=== PATIENT | male | born 1935 | race Two or more races ===

== ENCOUNTER 2016-08-02 07:29 | Emergency (ER) | payer MEDICARE, MEDICAID ==
[2016-08-02 07:47] LABS: ABSOLUTE NEUTROPHIL COUNT 2.3 K/mm3 (1.8-7.7); BASO # 0.1 K/mm3 (0.0-0.2); BASO % 1.3 % (0.2-1.0); EOS # 0.2 (0.0-0.5); EOS % 5.2 % (0.9-2.9); HEMATOCRIT 40.6 % (32.0-52.0); HEMOGLOBIN 12.8 gm/l (14.0-18.0); IMM NEUT% 0.5 % (0-1); LYMPH # 0.6 (1.0-4.8); LYMPH % 15.5 % (15-45); MEAN CELL VOLUME 96.9 fl (80.0-94.0); MEAN CORPUSCULAR HEMOGLOBIN 30.5 pg (27.0-31.0); MEAN CORPUSCULAR HGB CONC 31.5 g/dl (33.0-37.0); MEAN PLATELET VOLUME 11.2 fl (7.4-10.4); MONO # 0.7 (0.0-0.8); MONO % 18.4 % (4-12); NEUT % 59.1 % (43-75); PLATELET COUNT 163 K/mm3 (130-400); RED CELL DISTRIBUTION WIDTH 12.9 % (11.5-14.5)
[2016-08-02 08:07] LABS: ALB/GLOB RATIO 1.6 (>1.0); CALCIUM 8.8 mg/dL (8.6-10.3)
[2016-08-02 08:25] LABS: SPECIFIC GRAVITY 1.015 (1.001-1.030); URINE BILIRUBIN NEGATIVE (NEGATIVE); URINE BLOOD TRACE (NEGATIVE); URINE GLUCOSE (UA) NEGATIVE (NEGATIVE); URINE LEUKOCYTE ESTERASE NEGATIVE (NEGATIVE); URINE NITRITE NEGATIVE (NEGATIVE); URINE PROTEIN TRACE (NEGATIVE); URINE UROBILINOGEN NORMAL (0-1 mg/dl)
[2016-08-02 08:26] LABS: URINE APPEARANCE CLEAR; URINE COLOR YELLOW
--- NOTE | 2016-08-02 08:33 | RAD ---
History: Cough. Comparison: Chest x-ray dated 11/05/[address] examination of 11/02/2014. Technique: 2 views Findings: There is evidence of prior median sternotomy. Hardware fixation of the proximal right humerus is also noted. There are faint densities seen within the peripheral left upper lobe which are not evident on prior examination. However, these appear to project over several left anterior ribs, likely reflecting healing at the site of the visualized rib fractures noted on prior CT examination. The heart size is stable. There is an upper lumbar compression deformity which is also stable from the prior exam. No consolidation, effusion or pneumothorax is seen. The hilar and mediastinal structures are stable. Impression: 1. Subtle densities within the peripheral left upper lobe, likely reflecting healing at the site of the left anterior second and third rib fractures. 2. A stable upper lumbar compression deformity. 3. Prior median sternotomy. 4. Postsurgical changes involving the proximal right humerus. 5. No active intrathoracic process.
[2016-08-02] MEDS ORDERED: DIAZEPAM 5 MG/ML SYRINGE 2 ML ONE (08:37)
[2016-08-02 08:46] LABS: URINE RBC 0-1 /hpf; URINE WBC NEG /hpf
[2016-08-02 08:47] LABS: URINE AMORPHOUS SEDIMENT 1+; URINE BACTERIA RARE; URINE EPITHELIAL CELLS 0 /hpf
== END 2016-08-02 11:09 | disposition home or self-care (01) ==
LOC: ED 07:29
DX: F41.9 Anxiety disorder, unspecified (principal); I44.7 Left bundle-branch block, unspecified; E11.9 Type 2 diabetes mellitus without complications; Z79.4 Long term (current) use of insulin
CPT/HCPCS: 83605; 83690; 85025; 80053; 83735; 81001; 71020; 87804; 99284 ×2; 96374; 93005; J3360